=== PATIENT | male | born 1930 | race Caucasian/White ===

== ENCOUNTER → 2018-12-20 | Outpatient (CLI) | payer OTHER | LOC: HYPER 13:09 | DX: E11.622 Type 2 diabetes mellitus with other skin ulcer (principal); L97.821 Non-pressure chronic ulcer of other part of left lower leg limited to breakdown of skin; E11.51 Type 2 diabetes mellitus with diabetic peripheral angiopathy without gangrene; L03.116 Cellulitis of left lower limb; R21 Rash and other nonspecific skin eruption; E11.22 Type 2 diabetes mellitus with diabetic chronic kidney disease; I12.9 Hypertensive chronic kidney disease with stage 1 through stage 4 chronic kidney disease, or unspecified chronic kidney disease; N18.4 Chronic kidney disease, stage 4 (severe); E78.5 Hyperlipidemia, unspecified; R60.0 Localized edema; R26.9 Unspecified abnormalities of gait and mobility; F41.9 Anxiety disorder, unspecified; Z79.82 Long term (current) use of aspirin; Z79.84 Long term (current) use of oral hypoglycemic drugs; Z79.01 Long term (current) use of anticoagulants; Z87.891 Personal history of nicotine dependence ==

== ENCOUNTER → 2019-01-11 | Outpatient (CLI) | payer OTHER | LOC: ULTRA 14:44 | DX: I73.9 Peripheral vascular disease, unspecified (principal); L97.821 Non-pressure chronic ulcer of other part of left lower leg limited to breakdown of skin ==

== ENCOUNTER → 2019-01-18 | Outpatient (CLI) | payer OTHER | LOC: HYPER 14:30 | DX: E11.622 Type 2 diabetes mellitus with other skin ulcer (principal); L97.821 Non-pressure chronic ulcer of other part of left lower leg limited to breakdown of skin; E11.51 Type 2 diabetes mellitus with diabetic peripheral angiopathy without gangrene; E11.22 Type 2 diabetes mellitus with diabetic chronic kidney disease; I12.9 Hypertensive chronic kidney disease with stage 1 through stage 4 chronic kidney disease, or unspecified chronic kidney disease; N18.4 Chronic kidney disease, stage 4 (severe); E78.5 Hyperlipidemia, unspecified; R60.0 Localized edema; R26.9 Unspecified abnormalities of gait and mobility; F41.9 Anxiety disorder, unspecified; Z79.84 Long term (current) use of oral hypoglycemic drugs; Z79.01 Long term (current) use of anticoagulants; Z91.81 History of falling; Z87.891 Personal history of nicotine dependence ==